=== PATIENT | male | born 1985 | race African-American/Black ===

== ENCOUNTER 2023-03-28 23:00 | Emergency (ER) | payer MEDICAID ==
[~2023-03-28] VITALS: Ht 167.6 cm; Wt 70.9 kg
[~2023-03-28 23:00] MED LIST: IBUP-1955 PO
[2023-03-29] MEDS ORDERED: IBUPROFEN 400 MG TABLET PO ONE (00:30)
[2023-03-29] MEDS ORDERED: IBUPROFEN 400 MG TABLET ONE (00:33)
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
--- NOTE | 2023-03-29 02:42 | NUR ---
Patient discharged to home in stable condition. Written and verbal after care instructions given. Patient verbalizes understanding of instruction.
[2023-03-29 02:43] VITALS: BP 119/84
== END 2023-03-29 02:43 | disposition home or self-care (01) ==
LOC: ER 23:05
DX: S09.8XXA Other specified injuries of head, initial encounter (principal); F32.A Depression, unspecified; R45.851 Suicidal ideations; F17.200 Nicotine dependence, unspecified, uncomplicated; Z60.2 Problems related to living alone; Z79.899 Other long term (current) drug therapy; Z88.5 Allergy status to narcotic agent; Z88.1 Allergy status to other antibiotic agents; Y08.89XA Assault by other specified means, initial encounter; Y93.89 Activity, other specified; Y92.89 Other specified places as the place of occurrence of the external cause; Y99.8 Other external cause status
CPT/HCPCS: 70450-TC

== ENCOUNTER 2023-03-29 21:49 | Emergency (ER) | payer MEDICAID ==
--- NOTE | 2023-03-30 00:21 | NUR ---
CALLED TO TRIAGE; NO RESPONSE
--- NOTE | 2023-03-30 01:15 | NUR ---
CALLED TO TRIAGE; NO RESPONSE
--- NOTE | 2023-03-30 02:37 | NUR ---
CALLED TO TRIAGE; NO RESPONSE
== END 2023-03-30 02:49 | disposition left against medical advice (07) ==
LOC: ER 21:57
DX: Z53.21 Procedure and treatment not carried out due to patient leaving prior to being seen by health care provider (principal)

== ENCOUNTER 2024-01-20 22:14 | Emergency (ER) | payer MEDICAID, OTHER ==
[~2024-01-20] VITALS: Ht 170.2 cm; Wt 61.7 kg
[2024-01-20 23:00] VITALS: TEMP 98.2
[2024-01-20] MEDS ORDERED: KETOROLAC TROMETHAMINE INJ 30 MG/ML VIAL ONE (23:56)
[2024-01-21] MEDS: KETOROLAC TROMETHAMINE INJ 60 MG/2 ML VIAL IM ONE
[2024-01-21 03:37] LABS: BASOPHILS # (AUTO) 0.1 K/uL (0.0-0.2); BASOPHILS % (AUTO) 0.7 % (0.0-2.0); EOSINOPHILS # (AUTO) 0.7 K/uL (0.0-0.7); EOSINOPHILS % (AUTO) 8.2 % (0.0-6.0); HEMATOCRIT 41 % (39-51); HEMOGLOBIN 14.5 g/dL (13.5-17.5); LYMPHOCYTES # (AUTO) 1.9 K/uL (0.8-4.8); LYMPHOCYTES % (AUTO) 22.4 % (20.0-44.0); MEAN CORPUSCULAR HEMOGLOBIN 32 PG (26.0-33.0); MEAN CORPUSCULAR HGB CONC 35 g/dl (31.0-36.0); MEAN CORPUSCULAR VOLUME 91 fL (80-96); MONOCYTES # (AUTO) 1.3 K/uL (0.1-1.30); MONOCYTES % (AUTO) 14.9 % (2.0-12.0); NEUTROPHILS # (AUTO) 4.7 K/uL (1.8-8.9); NEUTROPHILS % (AUTO) 53.8 % (43.0-81.0); PLATELET COUNT (AUTO) 304 K/uL (150-450); RED BLOOD CELL COUNT(AUTO) 4.55 MIL/uL (4.5-6.0); WHITE BLOOD COUNT (AUTO) 8.7 K/uL (4.3-11.0)
[2024-01-21 03:43] LABS: CALCIUM, SERUM 8.8 mg/dL (8.5-10.1); CREATININE 0.8 mg/dL (0.6-1.3); POTASSIUM 3.5 mmol/L (3.5-5.1)
[2024-01-21 03:49] LABS: ALBUMIN 3.5 g/dL (3.4-5.0); BILIRUBIN,TOTAL 0.6 mg/dL (0.2-1.0); TOTAL PROTEIN, SERUM 7.7 g/dL (6.4-8.2)
[2024-01-21 07:25] VITALS: BP 129/88; O2SAT 98
== END 2024-01-21 07:25 | disposition home or self-care (01) ==
LOC: ER 22:14
DX: M54.10 Radiculopathy, site unspecified (principal); R59.1 Generalized enlarged lymph nodes; F32.A Depression, unspecified; F17.200 Nicotine dependence, unspecified, uncomplicated; Z88.8 Allergy status to other drugs, medicaments and biological substances; Z59.00 Homelessness unspecified
CPT/HCPCS: 99285; 72125; 96372; 73200; 71250; 85025; 36415; 80053; J1885

== ENCOUNTER 2024-01-27 02:57 | Emergency (ER) | payer OTHER ==
[~2024-01-27] VITALS: Ht 170.2 cm; Wt 67.6 kg
[2024-01-27 03:18] VITALS: BP 121/69; TEMP 97.8; O2SAT 99
== END 2024-01-27 04:20 | disposition home or self-care (01) ==
LOC: EDUNIT# 02:57 → ER 03:01
DX: M79.602 Pain in left arm (principal); F32.A Depression, unspecified; F17.200 Nicotine dependence, unspecified, uncomplicated; Z98.890 Other specified postprocedural states; Z79.899 Other long term (current) drug therapy; Z59.00 Homelessness unspecified; Z88.5 Allergy status to narcotic agent; Z88.1 Allergy status to other antibiotic agents

== ENCOUNTER 2024-01-30 06:39 | Emergency (ER) | payer OTHER ==
[~2024-01-30] VITALS: Ht 170.2 cm; Wt 67.6 kg
[2024-01-30 07:06] VITALS: BP 133/95; TEMP 98.4; O2SAT 97
== END 2024-01-30 07:16 | disposition home or self-care (01) ==
LOC: ER 06:39
DX: F32.A Depression, unspecified (principal); F19.10 Other psychoactive substance abuse, uncomplicated; F17.200 Nicotine dependence, unspecified, uncomplicated; Z88.8 Allergy status to other drugs, medicaments and biological substances; Z59.00 Homelessness unspecified

== ENCOUNTER 2024-03-03 06:12 | Emergency (ER) | payer OTHER ==
[~2024-03-03] VITALS: Ht 170.2 cm; Wt 62.6 kg
[2024-03-03 06:20] VITALS: BP 119/76; TEMP 97.6; O2SAT 98
== END 2024-03-03 06:38 | disposition home or self-care (01) ==
LOC: ER 06:12
DX: L84 Corns and callosities (principal); F19.10 Other psychoactive substance abuse, uncomplicated; F32.A Depression, unspecified; F17.200 Nicotine dependence, unspecified, uncomplicated; Z90.49 Acquired absence of other specified parts of digestive tract; Z79.899 Other long term (current) drug therapy; Z59.00 Homelessness unspecified

== ENCOUNTER 2024-03-18 02:33 | Emergency (ER) | payer OTHER ==
[~2024-03-18] VITALS: Ht 170.2 cm; Wt 63.5 kg
[2024-03-18 04:10] VITALS: BP 122/89; TEMP 97.6
[2024-03-18] MEDS ORDERED: ACETAMINOPHEN 325 MG TABLET PO ONE (05:00)
[2024-03-18] MEDS ORDERED: KETOROLAC TROMETHAMINE INJ 30 MG/ML VIAL ONE (05:00)
[2024-03-18] MEDS ORDERED: ACETAMINOPHEN ES 500 MG TABLET ONE (05:01)
[2024-03-18] MEDS: KETOROLAC TROMETHAMINE INJ 30 MG/ML VIAL IM ONE (05:06)
[2024-03-18] MEDS: ACETAMINOPHEN ES 500 MG TABLET PO ONE (05:08)
[2024-03-18 05:09] VITALS: O2SAT 98
== END 2024-03-18 05:09 | disposition home or self-care (01) ==
LOC: ER 02:45
DX: M54.50 Low back pain, unspecified (principal); F32.A Depression, unspecified; F17.200 Nicotine dependence, unspecified, uncomplicated; Z90.49 Acquired absence of other specified parts of digestive tract; Z59.00 Homelessness unspecified
CPT/HCPCS: 99283; 96372; J1885

== ENCOUNTER 2024-04-02 03:39 | Emergency (ER) | payer OTHER ==
[~2024-04-02] VITALS: Ht 170.2 cm; Wt 63.5 kg
[~2024-04-02 03:39] MED LIST changes: +GABA-532 PO; +IBUP-1953 PO
[2024-04-02 03:54] VITALS: BP 133/84; TEMP 98
[2024-04-02] MEDS ORDERED: CLOT15CR35 TP (04:17)
[2024-04-02 04:20] VITALS: O2SAT 99
== END 2024-04-02 04:55 | disposition home or self-care (01) ==
LOC: ER 03:43
DX: L84 Corns and callosities (principal); B35.3 Tinea pedis; F17.200 Nicotine dependence, unspecified, uncomplicated; F12.10 Cannabis abuse, uncomplicated; Z90.49 Acquired absence of other specified parts of digestive tract; Z59.00 Homelessness unspecified

== ENCOUNTER 2024-04-19 01:34 | Emergency (ER) | payer OTHER ==
[~2024-04-19] VITALS: Ht 170.2 cm; Wt 63.5 kg
[~2024-04-19 01:34] MED LIST changes: +CLOT15CR35 TP
[2024-04-19] MEDS ORDERED: IBUPROFEN 400 MG TABLET ONE (02:12)
[2024-04-19] MEDS: IBUPROFEN 400 MG TABLET PO ONE (02:13)
[2024-04-19 03:10] VITALS: BP 131/65; TEMP 98.8; O2SAT 99
== END 2024-04-19 03:10 | disposition home or self-care (01) ==
LOC: ER 01:35
DX: R05.9 Cough, unspecified (principal); M54.6 Pain in thoracic spine; R09.81 Nasal congestion; F32.A Depression, unspecified; F17.200 Nicotine dependence, unspecified, uncomplicated; F12.10 Cannabis abuse, uncomplicated; Z90.49 Acquired absence of other specified parts of digestive tract; Z59.00 Homelessness unspecified
CPT/HCPCS: 71045-TC

== ENCOUNTER 2024-06-15 00:14 | Emergency (ER) | payer OTHER ==
[~2024-06-15] VITALS: Ht 170.2 cm; Wt 63.5 kg
[2024-06-15] MEDS ORDERED: KETOROLAC TROMETHAMINE INJ 30 MG/ML VIAL ONE (01:54)
[2024-06-15 02:03] LABS: BASOPHILS # (AUTO) 0.1 K/uL (0.0-0.2); EOSINOPHILS # (AUTO) 0.4 K/uL (0.0-0.7); EOSINOPHILS % (AUTO) 5.3 % (0.0-6.0); HEMATOCRIT 42 % (39-51); HEMOGLOBIN 14.6 g/dL (13.5-17.5); LYMPHOCYTES # (AUTO) 2.8 K/uL (0.8-4.8); LYMPHOCYTES % (AUTO) 34.3 % (20.0-44.0); MEAN CORPUSCULAR HEMOGLOBIN 32 PG (26.0-33.0); MEAN CORPUSCULAR HGB CONC 35 g/dl (31.0-36.0); MEAN CORPUSCULAR VOLUME 93 fL (80-96); MONOCYTES # (AUTO) 0.9 K/uL (0.1-1.30); MONOCYTES % (AUTO) 11.4 % (2.0-12.0); NEUTROPHILS # (AUTO) 3.9 K/uL (1.8-8.9); PLATELET COUNT (AUTO) 314 K/uL (150-450); RED BLOOD CELL COUNT(AUTO) 4.55 MIL/uL (4.5-6.0); WHITE BLOOD COUNT (AUTO) 8.1 K/uL (4.3-11.0)
[2024-06-15] MEDS: KETOROLAC TROMETHAMINE INJ 30 MG/ML VIAL IM ONE (02:08)
--- NOTE | 2024-06-15 02:10 | NUR ---
BIBS C/O BACK AND LEG PAIN X 1 WK
[2024-06-15 02:27] LABS: CALCIUM, SERUM 9.3 mg/dL (8.5-10.1); CARBON DIOXIDE 28 mmol/L (21-32); CHLORIDE 101 mmol/L (98-107); CREATININE 0.8 mg/dL (0.6-1.3); GLUCOSE 88 mg/dL (74-106); POTASSIUM 3.9 mmol/L (3.5-5.1); SODIUM SERUM 139 mmol/L (136-145); UREA NITROGEN, BLOOD 8 mg/dL (7-18)
[2024-06-15 02:41] LABS: ALANINE AMINOTRANSFERASE 29 U/L (12-78); ALBUMIN 3.6 g/dL (3.4-5.0); ALKALINE PHOSPHATASE 57 U/L (46-116); ASPARTATE AMINOTRANSFERASE 37 U/L (15-37); BILIRUBIN,DIRECT 0.3 mg/dL (0.0-0.2); BILIRUBIN,TOTAL 0.7 mg/dL (0.2-1.0); NT-PRO BNP 18 pg/mL (0-125); TOTAL PROTEIN, SERUM 7.7 g/dL (6.4-8.2)
[2024-06-15 02:42] LABS: THYROID STIMULATING HORMONE 2.46 uIU/mL (0.358-3.74)
--- NOTE | 2024-06-15 05:06 | NUR ---
Patient discharged to home in stable condition. Written and verbal after care instructions given. Patient verbalizes understanding of instruction.
[2024-06-15 05:20] VITALS: BP 137/90; TEMP 98; O2SAT 99
== END 2024-06-15 05:20 | disposition home or self-care (01) ==
LOC: ER 00:14
DX: M54.50 Low back pain, unspecified (principal); F32.A Depression, unspecified; F17.200 Nicotine dependence, unspecified, uncomplicated; Z79.1 Long term (current) use of non-steroidal anti-inflammatories (NSAID); Z79.899 Other long term (current) drug therapy; Z98.890 Other specified postprocedural states; Z88.5 Allergy status to narcotic agent
CPT/HCPCS: 99284; 96372; 93005; 85025; 80048; 82550; 80076; 36415; 84443; 84484; 83880; 82553; J1885

== ENCOUNTER 2024-07-03 02:33 | Emergency (ER) | payer OTHER ==
[~2024-07-03] VITALS: Ht 172.7 cm; Wt 72.6 kg
[2024-07-03 05:03] VITALS: BP 132/84; TEMP 98.6; O2SAT 99
[2024-07-03] MEDS ORDERED: IBUPROFEN 400 MG TABLET ONE (05:27)
[2024-07-03] MEDS: IBUPROFEN 400 MG TABLET PO ONE (05:37)
== END 2024-07-03 05:57 | disposition home or self-care (01) ==
LOC: ER 02:36
DX: M54.59 Other low back pain (principal); F32.A Depression, unspecified; F19.10 Other psychoactive substance abuse, uncomplicated; F17.200 Nicotine dependence, unspecified, uncomplicated; F14.10 Cocaine abuse, uncomplicated; Z90.49 Acquired absence of other specified parts of digestive tract; Z88.8 Allergy status to other drugs, medicaments and biological substances; Z59.00 Homelessness unspecified
CPT/HCPCS: 72110-TC

== ENCOUNTER 2024-09-16 09:11 | Emergency (ER) | payer OTHER ==
[~2024-09-16] VITALS: Ht 162.6 cm; Wt 65.8 kg
[~2024-09-16 09:11] MED LIST changes: +KETO15CR2 TP; +PSEU120T83 PO
[2024-09-16 09:53] VITALS: BP 153/90; TEMP 97.8
[2024-09-16] MEDS ORDERED: NAPR-1164 PO (10:02)
[2024-09-16] MEDS ORDERED: IBUPROFEN 600 MG TABLET ONE (10:10)
[2024-09-16] MEDS: IBUPROFEN 600 MG TABLET PO ONE (10:17)
[2024-09-16 10:45] VITALS: O2SAT 97
== END 2024-09-16 10:46 | disposition home or self-care (01) ==
LOC: ER 09:22
DX: M25.50 Pain in unspecified joint (principal); M79.642 Pain in left hand; M79.641 Pain in right hand; G89.29 Other chronic pain; F17.200 Nicotine dependence, unspecified, uncomplicated; Z59.00 Homelessness unspecified; Z79.1 Long term (current) use of non-steroidal anti-inflammatories (NSAID); Z79.899 Other long term (current) drug therapy; Z88.5 Allergy status to narcotic agent

== ENCOUNTER 2024-09-24 05:27 | Emergency (ER) | payer OTHER ==
[~2024-09-24] VITALS: Ht 170.2 cm; Wt 67.1 kg
[~2024-09-24 05:27] MED LIST changes: +NAPR-1164 PO
[2024-09-24] MEDS ORDERED: LIDOCAINE 5% (PATCH) 1 EA PATCH TP ONE (06:23)
[2024-09-24] MEDS ORDERED: IBUPROFEN 600 MG TABLET ONE (06:23)
[2024-09-24] MEDS ORDERED: METH4TAB17 PO (06:25)
[2024-09-24] MEDS ORDERED: LIDO30AD10 TP (06:25)
[2024-09-24] MEDS: LIDOCAINE 5% (PATCH) 1 EA PATCH TP STA (06:28)
[2024-09-24] MEDS: IBUPROFEN 600 MG TABLET PO ONE (06:28)
[2024-09-24 06:35] VITALS: BP 128/81; TEMP 98; O2SAT 98
== END 2024-09-24 06:37 | disposition home or self-care (01) ==
LOC: ER 05:54
DX: M54.41 Lumbago with sciatica, right side (principal); F12.90 Cannabis use, unspecified, uncomplicated; F17.200 Nicotine dependence, unspecified, uncomplicated; F32.A Depression, unspecified; Z59.00 Homelessness unspecified; Z79.1 Long term (current) use of non-steroidal anti-inflammatories (NSAID); Z79.899 Other long term (current) drug therapy; Z88.5 Allergy status to narcotic agent

== ENCOUNTER 2024-10-19 06:12 | Emergency (ER) | payer OTHER ==
[~2024-10-19] VITALS: Ht 170.2 cm; Wt 67.1 kg
[~2024-10-19 06:12] MED LIST changes: +LIDO30AD10 TP; +METH4TAB17 PO
[2024-10-19 06:17] VITALS: BP 118/76; TEMP 98
[2024-10-19] MEDS ORDERED: CLOT15CR35 TP (06:24)
[2024-10-19 06:36] VITALS: O2SAT 99
== END 2024-10-19 06:43 | disposition home or self-care (01) ==
LOC: ER 06:17
DX: B35.3 Tinea pedis (principal); F19.10 Other psychoactive substance abuse, uncomplicated; M79.671 Pain in right foot; M79.672 Pain in left foot; F17.200 Nicotine dependence, unspecified, uncomplicated; Z59.00 Homelessness unspecified; Z79.1 Long term (current) use of non-steroidal anti-inflammatories (NSAID); Z79.899 Other long term (current) drug therapy; Z88.5 Allergy status to narcotic agent

== ENCOUNTER 2024-10-31 06:14 | Emergency (ER) | payer OTHER ==
[~2024-10-31] VITALS: Ht 167.6 cm; Wt 65.8 kg
[2024-10-31 06:24] VITALS: BP 134/77; TEMP 98.3; O2SAT 99
[2024-10-31] MEDS ORDERED: NAPR-1009 PO (06:32)
== END 2024-10-31 06:40 | disposition home or self-care (01) ==
LOC: ER 06:21
DX: R07.81 Pleurodynia (principal); R07.89 Other chest pain; F17.200 Nicotine dependence, unspecified, uncomplicated; Z59.00 Homelessness unspecified; Z79.1 Long term (current) use of non-steroidal anti-inflammatories (NSAID); Z79.899 Other long term (current) drug therapy; Z88.5 Allergy status to narcotic agent

== ENCOUNTER 2025-06-04 02:04 | Emergency (ER) | payer OTHER ==
[~2025-06-04 02:04] MED LIST changes: +NAPR-1009 PO
== END 2025-06-04 03:54 | disposition left against medical advice (07) ==
LOC: ER 02:05
DX: R10.9 Unspecified abdominal pain (principal); Z53.21 Procedure and treatment not carried out due to patient leaving prior to being seen by health care provider